=== PATIENT | female | born 1940 | race Caucasian/White ===

== ENCOUNTER 2021-07-09 20:24 | Emergency (ER) | payer MEDICARE, OTHER, MEDICAID, SELFPAY ==
[2021-07-09] VITALS (18 sets, daily range): BP systolic 151–170; BP diastolic 59–81; PULSE 64–75; RESP 15–22; TEMP 36.4; O2SAT 95–99
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
--- NOTE | 2021-07-09 20:57 | ECG_ITS ---
Measurements Intervals [place] Rate: 68 P: 56 MT: 162 QRS: -17 QRSD: 102 T: 54 QT: 421 QTc: 449 Interpretive Statements SINUS RHYTHM INFERIOR INFARCT, AGE INDETERMINATE ABNORMAL ECG Electronically Signed On 07-10-2021 8:08:36 GAMBLING SUPERVISOR by Soren Mcgee D.O.
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
[2021-07-09 21:32] LABS: Basophils Percent Auto 0.4 % (0.2-1.2); Eosinophils Percent Auto 0.1 % (0-4.4); Hematocrit 37.9 % (37.0-47.0); Hemoglobin 13.1 g/dL (12.0-15.0); Immature Granulocyte Absolute 0.02 K/mm3 (0.00-0.031); Immature Granulocyte Percent A 0.3 % (0-0.5); Immature Platelet Fraction Pct 1.3 % (0.9-11.2); Lymphocytes Absolute Auto 4.91 K/mm3 (0.9-3.2); Lymphocytes Percent Auto 72.6 % (18.3-44.2); Mean Corpuscular HGB Conc 34.6 g/dl (32-36); Mean Corpuscular Hemoglobin 31.3 pg (26-34); Mean Corpuscular Volume 90.5 fl (80-100); Mean Platelet Volume 8.6 fl (7.4-10.4); Monocytes Absolute Auto 0.5 K/mm3 (0.1-0.6); Monocytes Percent Auto 7.4 % (2.6-8.5); Neutrophils Absolute Auto 1.3 K/mm3 (1.3-6.7); Neutrophils Percent Auto 19.2 % (45.5-73.1); Platelet Count Result 154 k/mm3 (150-375); Red Blood Count 4.19 M/mm3 (4.2-5.4); White Blood Count 6.8 K/mm3 (4.5-10.0)
[2021-07-09 21:43] LABS: Alanine Aminotransferase 32 U/L (4-35); Albumin Level 4.3 g/dL (3.5-5.1); Alkaline Phosphatase 104 U/L (38-126); Anion Gap 7 mmol/L (8-16); Aspartate Amino Transferase 64 U/L (14-36); Blood Urea Nitrogen 16 mg/dL (7-17); Calcium 9.5 mg/dL (8.4-10.2); Carbon Dioxide 29 mmol/L (22-30); Chloride 101 mmol/L (98-107); Estimated CRCL calculation 42 ml/min; Estimated Glomerular Filt Rate > 60; Glucose 121 mg/dL (65-110); Potassium 4.1 mmol/L (3.4-5.0); Sodium 137 mmol/L (137-145)
[2021-07-09 23:21] LABS: Troponin I 0.026 ng/mL (0.000-0.034)
[2021-07-10] VITALS: BP 149/71; PULSE 73; RESP 18; O2SAT 97
[2021-07-10 01:14] VITALS: BP 147/68; PULSE 68; RESP 18; O2SAT 97
== END 2021-07-10 01:15 | disposition short-term general hospital (02) ==
PROVIDERS: Emergency Provider Emergency Medicine; PCP Family Medicine
DX: S22.20XA Unspecified fracture of sternum, initial encounter for closed fracture (principal); J98.59 Other diseases of mediastinum, not elsewhere classified; E03.9 Hypothyroidism, unspecified; E78.5 Hyperlipidemia, unspecified; Z87.891 Personal history of nicotine dependence; V43.62XA Car passenger injured in collision with other type car in traffic accident, initial encounter; Y92.410 Unspecified street and highway as the place of occurrence of the external cause
CPT/HCPCS: 36415; 71045; 71260; 74177; 80053; 84484; 85025; 85055; 93005; 96365; 99285; J0131; Q9967

== ENCOUNTER 2021-07-22 09:28 | Outpatient (CLI) | payer MEDICARE, MEDICAID, SELFPAY ==
--- NOTE | ~2021-07-22 | CT_ITS ---
EXAMINATION: CTA chest DATE: 07/22/2021 10:11 INDICATION: Mediastinal mass TECHNIQUE: Computed tomography (CT) of the chest was performed without and subsequently with 100 cc O mnipaque 350 intravenous contrast. Automated exposure control and iterative reconstruction technique were employed. Exam dose: 371.21 mGy-cm total exam DLP. COMPARISON: 07/09/2021 CT chest abdomen pelvis FINDINGS: Again noted is a large substernal circumscribed anterior mediastinal mass with heterogeneou s density including probable cystic and/or necrotic regions. The mass measures as much as 7 cm matthew posterior and 10 cm transverse dimension. There is enhancement of some vessels within the lesion on t he postcontrast examination. Differential diagnosis includes benign or malignant lesions of thymic, t hyroid origin or teratoma or germ cell tumors. Also included in the differential diagnosis would be l ymphoma. There is a small pericardial effusion. Heart size is normal. No hilar or other mediastinal mass lesion or lymphadenopathy or axillary adenopathy is noted. No thoracic aortic aneurysm or dissection. Bilateral apical scarring. There is discoid atelectasis or scarring in the anteromedial right upper lobe and both lower lobes. N o pulmonary consolidation or suspicious pulmonary mass lesion. The adrenal glands are unremarkable. Borderline or increased splenic size. Upper sternal body depressed fracture is again noted. IMPRESSION: Large anterior mediastinal mass; differential diagnosis given above Borderline or enlarged spleen Trace pericardial effusion Deep breast fracture of the upper body of the sternum Reviewed, dictated and finalized at Location A. Reviewed, dictated and finalized at location B. LOPMENT PROFESSIONAL IMPRESSION: Large anterior mediastinal mass; differential diagnosis given abov e Borderline or enlarged spleen Trace pericardial effusion Deep breast fracture of the upper body of the sternum
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
== END 2021-07-22 09:29 | disposition home or self-care (01) ==
PROVIDERS: PCP Family Medicine; Visit Provider Physician Assistant Medical
DX: R07.81 Pleurodynia (principal); J98.59 Other diseases of mediastinum, not elsewhere classified; I31.3 Pericardial effusion (noninflammatory); S22.22XA Fracture of body of sternum, initial encounter for closed fracture; M85.88 Other specified disorders of bone density and structure, other site
CPT/HCPCS: 71110; 71275; Q9967

== ENCOUNTER 2022-09-08 09:18 | Outpatient (CLI) | payer MEDICARE, MEDICAID, SELFPAY ==
[2022-09-08 20:20] LABS: Vitamin D 25 Hydroxy 48.6 ng/mL
[2022-09-08 20:21] LABS: Basophils Percent Auto 0.9 % (0.2-1.2); Eosinophils Percent Auto 0.3 % (0-4.4); Hematocrit 33.1 % (37.0-47.0); Hemoglobin 10.9 g/dL (12.0-15.0); Lymphocytes Absolute Auto 2.48 K/mm3 (0.9-3.2); Lymphocytes Percent Auto 74.5 % (18.3-44.2); Mean Corpuscular HGB Conc 32.9 g/dl (32-36); Mean Corpuscular Hemoglobin 29.3 pg (26-34); Mean Platelet Volume 9.3 fl (7.4-10.4); Monocytes Absolute Auto 0.5 K/mm3 (0.1-0.6); Neutrophils Absolute Auto 0.3 K/mm3 (1.3-6.7); Neutrophils Percent Auto 9.3 % (45.5-73.1); Platelet Count Result 126 k/mm3 (150-375); Red Blood Count 3.72 M/mm3 (4.2-5.4); Red Cell Distribution Width 14.6 % (11.5-14.5); White Blood Count 3.3 K/mm3 (4.5-10.0)
[2022-09-08 20:53] LABS: Alanine Aminotransferase 12 U/L (6-35); Albumin Level 3.8 g/dL (3.5-5.1); Alkaline Phosphatase 94 U/L (38-126); Anion Gap 5 mmol/L (8-16); Aspartate Amino Transferase 24 U/L (14-36); Bilirubin,Total 1.7 mg/dL (0.2-1.3); Blood Urea Nitrogen 14 mg/dL (7-17); Calcium 8.7 mg/dL (8.4-10.2); Carbon Dioxide 28 mmol/L (22-30); Chloride 102 mmol/L (98-107); Cholesterol 179 mg/dL (0-200); Estimated Glomerular Filt Rate 60; Glucose 105 mg/dL (65-110); HDL Direct 42 mg/dL; Sodium 135 mmol/L (137-145); Triglycerides 80 mg/dL (<150)
[2022-09-08 21:04] LABS: LDL Cholesterol Direct 100 mg/dL
[2022-09-08 22:01] LABS: Platelet Estimate Adequate (Adequate)
[2022-09-08 22:02] LABS: Atypical Lymphocytes Present; Schistocytes None Seen (NORMAL)
[2022-09-08 22:04] LABS: Folic Acid > 20.0 ng/mL (2.76->20)
[2022-09-08 22:13] LABS: Hemoglobin A1C 4.7 % (<5.7)
== END 2022-09-08 09:19 | disposition home or self-care (01) ==
LOC: ANHGOSHLAB 09:21
PROVIDERS: PCP Family Medicine; Visit Provider Physician Assistant
DX: R53.83 Other fatigue (principal); I10 Essential (primary) hypertension; M81.0 Age-related osteoporosis without current pathological fracture; E03.9 Hypothyroidism, unspecified; E78.2 Mixed hyperlipidemia; R73.01 Impaired fasting glucose; G62.9 Polyneuropathy, unspecified; R09.89 Other specified symptoms and signs involving the circulatory and respiratory systems
CPT/HCPCS: 36415; 80053; 80061; 82306; 82607; 82746; 83036; 84443; 85025

== ENCOUNTER 2022-09-15 09:23 | Outpatient (CLI) | payer MEDICARE, MEDICAID, SELFPAY ==
[2022-09-15 19:48] LABS: Hematocrit 34.1 % (37.0-47.0); Hemoglobin 11.4 g/dL (12.0-15.0); Immature Reticulocyte Fraction 13.3 % (3.0-15.9); Mean Corpuscular HGB Conc 33.4 g/dl (32-36); Mean Corpuscular Hemoglobin 29.8 pg (26-34); Mean Corpuscular Volume 89.3 fl (80-100); Platelet Count Result 127 k/mm3 (150-375); Red Blood Count 3.82 M/mm3 (4.2-5.4); Red Cell Distribution Width 14.6 % (11.5-14.5); Reticulocyte Hemoglobin Conten 30.9 pg (28.2-35.7); Reticulocyte Percent 2.11 % (0.7-4.3); Reticulocytes Absolute 0.08 B/L (32.2-175.7); White Blood Count 2.9 K/mm3 (4.5-10.0)
[2022-09-15 20:11] LABS: Band Neutrophils Percent 2 % (0-6); Lymphocytes Absolute Manual 2.14 K/mm3 (1.1-4.5); Monocytes Percent Manual 14 % (3-9); Neutrophils Absolute Manual 0.34 K/mm3 (1.7-7.2); Neutrophils Percent Manual 10 % (46-73); Schistocytes None Seen (NORMAL); Total Cells Counted 100
== END 2022-09-15 09:24 | disposition home or self-care (01) ==
LOC: ANHGOSHLAB 09:27
PROVIDERS: PCP Family Medicine; Visit Provider Family Medicine
DX: E03.9 Hypothyroidism, unspecified (principal); I48.20 Chronic atrial fibrillation, unspecified; R53.83 Other fatigue; D64.9 Anemia, unspecified
CPT/HCPCS: 36415; 82728; 84443; 85025; 85046

== ENCOUNTER 2022-11-08 14:37 | Outpatient (CLI) | payer MEDICARE, MEDICAID, SELFPAY ==
[2022-11-08 15:04] LABS: Basophils Percent Auto 0.3 % (0.2-1.2); Eosinophils Percent Auto 0.3 % (0-4.4); Hematocrit 34.3 % (37.0-47.0); Hemoglobin 11.5 g/dL (12.0-15.0); Lymphocytes Absolute Auto 2.03 K/mm3 (0.9-3.2); Mean Corpuscular HGB Conc 33.5 g/dl (32-36); Mean Corpuscular Volume 86.6 fl (80-100); Mean Platelet Volume 8.3 fl (7.4-10.4); Monocytes Absolute Auto 0.4 K/mm3 (0.1-0.6); Monocytes Percent Auto 11.9 % (2.6-8.5); Neutrophils Absolute Auto 0.6 K/mm3 (1.3-6.7); Neutrophils Percent Auto 20.5 % (45.5-73.1); Platelet Count Result 119 k/mm3 (150-375); Red Blood Count 3.96 M/mm3 (4.2-5.4); Red Cell Distribution Width 13.9 % (11.5-14.5)
[2022-11-08 17:11] LABS: Alanine Aminotransferase 12 U/L (6-35); Albumin Level 4.2 g/dL (3.5-5.1); Alkaline Phosphatase 98 U/L (38-126); Anion Gap 6 mmol/L (8-16); Aspartate Amino Transferase 18 U/L (14-36); Bilirubin,Total 1.3 mg/dL (0.2-1.3); Blood Urea Nitrogen 11 mg/dL (7-17); Calcium 9.1 mg/dL (8.4-10.2); Carbon Dioxide 30 mmol/L (22-30); Chloride 101 mmol/L (98-107); Estimated Glomerular Filt Rate > 60; Glucose 115 mg/dL (65-110); Lactate Dehydrogenase 158 U/L (120-246); Potassium 4.3 mmol/L (3.4-5.0); Sodium 137 mmol/L (137-145)
[2022-11-08 17:13] LABS: Iron 48 ug/dL (37-170)
[2022-11-08 17:22] LABS: Percent Iron Saturation 17 % (20-50)
[2022-11-08 18:14] LABS: Folic Acid 9.4 ng/mL (2.76->20)
== END 2022-11-08 14:38 | disposition home or self-care (01) ==
LOC: ANHLAB 14:39
PROVIDERS: PCP Family Medicine; Visit Provider Internal Medicine Hematology & Oncology
DX: D72.820 Lymphocytosis (symptomatic) (principal)
CPT/HCPCS: 36415; 80053; 82607; 82728; 82746; 83540; 83550; 83615; 85025; 88184; 88185

== ENCOUNTER 2022-11-10 15:24 | Emergency (ER) | payer MEDICARE, MEDICAID, SELFPAY ==
--- NOTE | ~2022-11-10 | XR_ITS ---
XR foot LT min 3V 11/10/2022 15:57 Indication: Pain and swelling of the left foot Procedure: 4 views left foot Comparison: No prior studies for comparison. Findings: No fracture, subluxation or dislocation. Osteopenia. No significant soft tissue abnormality . No erosive changes. Lisfranc joint intact. Impression: 1: No acute bone or joint abnormality. Reviewed, dictated and finalized at location B. Impression: 1: No acute bone or joint abnormality.
--- NOTE | 2022-11-10 15:35 | ED.LOWEXIN ---
HPI - Extremity Injury (Lower) General Chief Complaint: Extremity Injury, Lower Stated Complaint: INJURED L FOOT Time Seen by Provider: 11/10/22 15:36 Source: patient, family and RN notes reviewed History of Present Illness HPI Narrative: Patient is an 82-year-old female presents to Urgent Care with her daughter with complaints of left foot swelling and pain. Daughter states that it has been ongoing since August. States that she has been following up with an oncologist to rule out leukemia and they told her to have it evaluated by her primary care doctor. Patient has not had the issue evaluated in states the swelling has been more persistent. Patient does try to walk at least 1-2 miles per day but has not been able to do her walking due to the swelling and pain. Denies any known injury. Denies any old fractures to the foot. No other acute complaints. No acute distress noted. Patient and daughter aware of the plan of care. Some parts of this dictation were generated by voice recognition software and may contain typographical and/or grammatical inaccuracies. Related Data Home Medications Medication Instructions Recorded Confirmed lactobacillus combination no.9 4 4,000 mmu cells PO DAILY 08/20/20 11/10/22 billion cell capsule (Adult 50 Plus Probiotic) sgmowsvdecau-wxnjprbw-ksuoel tablet 1 tablet PO DAILY 08/20/20 11/10/22 levothyroxine 100 mcg tablet 100 mcg PO DAILY 08/24/22 11/10/22 amlodipine 5 mg tablet 5 mg PO DAILY 11/10/22 11/10/22 Allergies Allergy/AdvReac Type Severity Reaction Status Date / Time alendronate sodium AdvReac GI side Verified 11/10/22 15:45 [From Fosamax] effects escitalopram [From Lexapro] AdvReac felt Verified 11/10/22 15:45 crazy ibandronate sodium AdvReac Abdominal Verified 11/10/22 15:45 [From Boniva] Pain Review of Systems Review of Systems: CONSTITUTIONAL: Denies fever, chills, or sweats. EYES: Denies visual changes, redness, or discharge. ENT: Denies rhinorrhea, congestion, sore throat, or otalgia. CARDIOVASCULAR: Denies chest pain, palpitations, or edema. RESPIRATORY: Denies cough or dyspnea. GASTROINTESTINAL: Denies abdominal pain, nausea, vomiting, or diarrhea. GENITOURINARY: Denies dysuria or hematuria. SKIN: Denies rash or itching. MUSCULOSKELETAL: Reports of left foot pain and swelling NEUROLOGIC: Denies headache, numbness, or weakness. All other systems reviewed are negative, except as documented in HPI. [facility] Past Medical History Medical History Anxiety Aphthous ulcer of mouth Arthritis Carotid artery plaque Colon polyp Depression Dysphagia : Barium swallow negative Elevated LDL cholesterol level Hard of hearing History of colitis Hyperlipidemia Hypothyroidism Mediastinal mass thymoma excised Osteoporosis dexa 2019 / adverse reaction fosamax/boniva. tx refused. Ovarian cyst Postmenopausal Surgical History Surgical History H/O right knee surgery (~1951) History of colonoscopy (~04/19/15) History of neck surgery History of tubal ligation (~1976) Hx of oophorectomy Family History Family History Mother Family history of osteoporosis Depression Family history of cardiovascular disease, Onset Age: 82 Father Patient's father is , Onset Age: 78 Sibling Family history of alcoholism Family history of cardiovascular disease, Onset Age: 78 Cerebrovascular accident, Onset Age: 78 Esophageal stenosis Social History Social History Smoking status: Never smoker Second hand tobacco smoke exposure: No Alcohol intake: current Drinks per week: 14 Substance use: never Substance use type: does not use Lack of Transportation: No Lack of Food: Never True C
[2022-11-10 15:50] VITALS: BP 142/79; PULSE 74; RESP 16; TEMP 36.7; O2SAT 100
== END 2022-11-10 16:44 | disposition home or self-care (01) ==
PROVIDERS: Emergency Provider Nurse Practitioner Family; PCP Family Medicine
DX: M25.572 Pain in left ankle and joints of left foot (principal); M19.90 Unspecified osteoarthritis, unspecified site; E78.5 Hyperlipidemia, unspecified; E03.9 Hypothyroidism, unspecified; M81.0 Age-related osteoporosis without current pathological fracture
CPT/HCPCS: 73630; 99213; G0463

== ENCOUNTER 2022-11-16 09:16 | Outpatient (CLI) | payer MEDICARE, MEDICAID, SELFPAY ==
--- NOTE | ~2022-11-16 | US_ITS ---
Abdominal Sonogram: Real-time sonographic imaging of the abdomen was performed. Clinical History: Lymphocytosis Findings: The liver appears normal with no evidence of mass lesion or bile duct dilatation. Main por bee vein demonstrates normal direction of flow. The spleen is enlarged, measuring 15.5 cm in length. The gallbladder is well distended, and appears normal with no evidence of gallstone or wall thickeni ng. The common bile duct measures 4 mm. The visualized pancreas, aorta, and IVC are unremarkable. T he right kidney measures 9.6 cm in length and the left kidney measures 10.4 cm. There is no hydronep hrosis or renal calculus. Impression: Splenomegaly. Reviewed, dictated and finalized at location M. Impression: Splenomegaly.
== END 2022-11-16 09:17 | disposition home or self-care (01) ==
PROVIDERS: PCP Family Medicine; Visit Provider Internal Medicine Hematology & Oncology
DX: D72.820 Lymphocytosis (symptomatic) (principal); R16.1 Splenomegaly, not elsewhere classified
CPT/HCPCS: 76700

== ENCOUNTER 2022-12-14 00:55 | Day surgery (SDC) | payer MEDICARE, MEDICAID, SELFPAY ==
[2022-12-13 13:54] VITALS: BMI 18.0
--- NOTE | ~2022-12-14 | BM_ITS ---
EXAMINATION: CCL bone marrow asp w bx diag DATE: 12/14/2022 INDICATION: Chronic anemia. TECHNIQUE: A time-out was performed to verify the patient's name, date of , and procedure to b e performed. The procedure including the risks, benefits, and alternatives was discussed with the pat ient. Risks discussed included bleeding and infection. The patient understood the risks and agreed to proceed. The skin overlying the left ilium was prepped and draped in usual sterile fashion. Anesth etic was administered with 1% lidocaine subcutaneously. Moderate sedation was achieved with 0.5 mg Ve rsed IV and 25 mcg fentanyl IV. An 11 gauge needle was inserted into the ilium with fluoroscopic mary dance. Bone marrow was aspirated. An 8 gauge needle was then inserted into the ilium with fluoroscopi c guidance. A core bone marrow biopsy was obtained. There were no immediate complications. Fluoroscop y exposure time was 0.0 minutes. The total number of images was 1. FINDINGS: Real-time fluoroscopy demonstrates a marker overlying the left posterior superior iliac spi ne. IMPRESSION: 1. Fluoro-guided bone marrow aspiration. 2. Fluoro-guided bone marrow core biopsy. Reviewed, dictated and finalized at location A.
[2022-12-14 07:45] VITALS: BP 157/74; PULSE 66; RESP 17; TEMP 36.6; O2SAT 100; BMI 18.0
[2022-12-14 08:00] LABS: Basophils Percent Auto 0.6 % (0.2-1.2); Hematocrit 37.9 % (37.0-47.0); Hemoglobin 12.4 g/dL (12.0-15.0); Lymphocytes Absolute Auto 2.54 K/mm3 (0.9-3.2); Lymphocytes Percent Auto 72.6 % (18.3-44.2); Mean Corpuscular HGB Conc 32.7 g/dl (32-36); Mean Corpuscular Hemoglobin 28.4 pg (26-34); Mean Corpuscular Volume 86.9 fl (80-100); Mean Platelet Volume 8.9 fl (7.4-10.4); Monocytes Absolute Auto 0.5 K/mm3 (0.1-0.6); Neutrophils Absolute Auto 0.5 K/mm3 (1.3-6.7); Neutrophils Percent Auto 12.8 % (45.5-73.1); Platelet Count Result 115 k/mm3 (150-375); Red Blood Count 4.36 M/mm3 (4.2-5.4); Red Cell Distribution Width 14.7 % (11.5-14.5); White Blood Count 3.5 K/mm3 (4.5-10.0)
[2022-12-14 08:09] LABS: Prothrombin Time 13.3 Seconds (11.1-14.7)
--- NOTE | 2022-12-14 08:52 | WPDMODSED ---
Moderate Sedation Note-Pt Data Patient Data Diagnosis: Chronic anemia. Present Complaint: Chronic anemia. Procedure to be performed/Plan: Fluoro-guided bone marrow biopsy of ilium. Allergies Allergy/AdvReac Type Severity Reaction Status Date / Time alendronate sodium AdvReac GI side Verified 12/14/22 07:42 [From Fosamax] effects escitalopram [From Lexapro] AdvReac felt Verified 12/14/22 07:42 crazy ibandronate sodium AdvReac Abdominal Verified 12/14/22 07:42 [From Boniva] Pain Home Medications Medication Instructions Recorded Confirmed Type triamcinolone acetonide 0.1 % 1 applic topical BID PRN rash #454 11/12/22 12/13/22 Rx topical cream grams Magic Mouthwash (Dr. Cruz) 120 See Rx Instructions .Route 11/15/22 12/13/22 Rx mL suspension .COMPLEX #120 mL levothyroxine 100 mcg tablet 100 mcg PO DAILY #90 tabs 11/15/22 12/13/22 Rx acyclovir 800 mg tablet See Rx Instructions .Route 11/30/22 12/13/22 Rx .COMPLEX #90 tabs cyanocobalamin (vitamin B-12) 1,000 mcg PO DAILY 12/13/22 12/13/22 History 1,000 mcg tablet metoprolol succinate 25 mg 25 mg PO DAILY 12/13/22 12/13/22 History tablet,extended release 24 hr Sedation/Anesthesia: No previous sedation/anesthesia problems (including family history). [facility] Past Medical History Medical History Anxiety Aphthous ulcer of mouth Arthritis Carotid artery plaque Colon polyp Depression Dysphagia : Barium swallow negative Elevated LDL cholesterol level Hard of hearing History of colitis Hyperlipidemia Hypothyroidism Mediastinal mass thymoma excised Osteoporosis dexa 2019 / adverse reaction fosamax/boniva. tx refused. Ovarian cyst Postmenopausal Surgical History Surgical History H/O right knee surgery (~1951) History of colonoscopy (~04/19/15) History of neck surgery History of tubal ligation (~1976) Hx of oophorectomy Family History Family History Mother Family history of osteoporosis Depression Family history of cardiovascular disease, Onset Age: 82 Father Patient's father is , Onset Age: 78 Sibling Family history of alcoholism Family history of cardiovascular disease, Onset Age: 78 Cerebrovascular accident, Onset Age: 78 Esophageal stenosis Social History Social History Smoking packs per day: 1 Smoking cigarettes per day: 20.0 Years smoked: 10 Smoking pack-years: 10.00 Smoking status: Former smoker Tobacco type: cigarettes Second hand tobacco smoke exposure: No Alcohol intake: current Drinks per week: 7 Alcohol use details: a glass a day Substance use: never Substance use type: does not use Lack of Transportation: No Lack of Food: Never True Current Housing: I Have Housing Concerned About Future Housing: No Difficulty Paying Gas/Electric Bills: No Difficulty Paying for Meds: No Currently Unemployed: No Education: High School Diploma/GED Difficulty w/ Childcare or Family Care: No Living arrangements: alone Occupation/Education: retired Gender identity (if verbalized by the patient): Female Spiritual care concerns: No Agree to blood products: Yes Mod Sed Physical Exam Physical Exam Pre Procedural Exam: Normal: Appearance, Lungs, Heart Rate, Heart Rhythm and Abdomen Hours since solid foods: 12 Hours since liquid intake: 12 Mallampati Classification: class 1 Internal Medicine - PN: Obj Da Vital Signs Vital Signs: Vital Signs - 24 hr 12/14/22 07:45 Temperature 36.6 C Pulse Rate 66 Respiratory Rate 17 Blood Pressure 157/74 H Pulse Oximetry 100 Oxygen Delivery Room Air Labs 12/14/22 07:41 Labs: Laboratory Results - last 24 hr 12/14/22 07:
[2022-12-14 09:30] VITALS: BP 137/63; PULSE 62; RESP 17; O2SAT 99
[2022-12-14 09:45] VITALS: BP 149/71; PULSE 59; RESP 18; O2SAT 99
[2022-12-14 10:00] VITALS: BP 141/64; PULSE 61; RESP 18; O2SAT 97
[2022-12-14 10:15] VITALS: BP 131/64; PULSE 62; RESP 18; O2SAT 98
[2022-12-14 10:30] VITALS: BP 131/65; PULSE 61; RESP 20; O2SAT 99
== END 2022-12-14 10:37 | disposition home or self-care (01) ==
PROVIDERS: PCP Family Medicine; Referring Provider Internal Medicine Hematology & Oncology; Visit Provider Radiology Diagnostic Radiology
DX: D64.9 Anemia, unspecified (principal); E03.9 Hypothyroidism, unspecified; M81.0 Age-related osteoporosis without current pathological fracture; Z87.891 Personal history of nicotine dependence
CPT/HCPCS: 36415; 38222; 85025; 85610; 88184; 88185; 88305; 88311; 88313; 88341; 88342; J1642; J2250; J2405; J3010; J7040

== ENCOUNTER 2023-01-11 10:21 | Outpatient (NON) | payer MEDICARE, MEDICAID, SELFPAY ==
[2023-01-11 19:47] LABS: IFOB Positive Control Positive; Immunochemical Fecal Occult Bl Negative (N)
== END 2023-01-11 10:22 | disposition home or self-care (01) ==
LOC: ANHGOSHLAB 10:22
PROVIDERS: PCP Family Medicine; Visit Provider Physician Assistant
DX: D64.9 Anemia, unspecified (principal)
CPT/HCPCS: 82274

== ENCOUNTER 2023-05-18 10:28 | Outpatient (CLI) | payer MEDICARE, MEDICAID, SELFPAY ==
--- NOTE | ~2023-05-18 | XR_ITS ---
XR chest 2V DATE: 05/18/2023 10:50 INDICATION: Abnormal weight loss TECHNIQUE: PA and lateral views COMPARISON: 07/22/2021 CTA chest 07/19/2021 portable AP chest FINDINGS: Status post sternotomy. Bilateral hyperinflation, suggesting obstructive airways disease. Mild discoid atelectasis or scarrin g in the left lower lung. No pulmonary infiltrate or consolidation. Borderline heart size. Thoracic and abdominal aortic calcification. No pulmonary vascular congestion or pleural effusion or pneumothorax. There is diffuse osteopenia. There is dextroscoliosis of the thoracic spine. IMPRESSION: Status post sternotomy; resolution of anterior mediastinal widening since 07/22/2021 Bilateral hyperinflation Aortic atherosclerosis Osteopenia Reviewed, dictated and finalized at location B.
== END 2023-05-18 10:29 | disposition home or self-care (01) ==
PROVIDERS: PCP Family Medicine; Visit Provider Physician Assistant
DX: R63.4 Abnormal weight loss (principal); I70.0 Atherosclerosis of aorta; M85.88 Other specified disorders of bone density and structure, other site
CPT/HCPCS: 71046

== ENCOUNTER 2023-06-02 10:34 | Outpatient (CLI) | payer MEDICARE, MEDICAID, SELFPAY ==
[2023-06-02 10:47] LABS: Basophils Percent Auto 0.4 % (0.2-1.2); Hematocrit 34.2 % (37.0-47.0); Lymphocytes Absolute Auto 1.62 K/mm3 (0.9-3.2); Lymphocytes Percent Auto 66.4 % (18.3-44.2); Mean Corpuscular HGB Conc 32.2 g/dl (32-36); Mean Corpuscular Hemoglobin 26.5 pg (26-34); Mean Corpuscular Volume 82.4 fl (80-100); Mean Platelet Volume 8.4 fl (7.4-10.4); Monocytes Absolute Auto 0.4 K/mm3 (0.1-0.6); Monocytes Percent Auto 15.2 % (2.6-8.5); Neutrophils Absolute Auto 0.4 K/mm3 (1.3-6.7); Platelet Count Result 92 k/mm3 (150-375); Red Blood Count 4.15 M/mm3 (4.2-5.4); Red Cell Distribution Width 16.1 % (11.5-14.5); White Blood Count 2.4 K/mm3 (4.5-10.0)
[2023-06-02 10:51] LABS: Blood Urea Nitrogen 7 mg/dL (8-26); Carbon Dioxide 27 mmol/L (22-30); Chloride 102 mmol/L (98-109); Estimated Glomerular Filt Rate > 60; Glucose 111 mg/dL (70-105); Ionized Calcium (POC) 1.23 mmol/L (1.11-1.31); Potassium 4.1 mmol/L (3.5-4.9); Sodium 139 mmol/L (138-146)
[2023-06-02 16:56] LABS: Iron 34 ug/dL (37-170)
[2023-06-02 17:06] LABS: Percent Iron Saturation 13 % (20-50)
[2023-06-02 17:27] LABS: Alanine Aminotransferase 12 U/L (6-35); Albumin Level 4.1 g/dL (3.5-5.1); Alkaline Phosphatase 95 U/L (38-126); Anion Gap 7 mmol/L (8-16); Aspartate Amino Transferase 24 U/L (14-36); Bilirubin,Total 1.3 mg/dL (0.2-1.3); Blood Urea Nitrogen 9 mg/dL (7-17); Calcium 9.9 mg/dL (8.4-10.2); Carbon Dioxide 27 mmol/L (22-30); Chloride 102 mmol/L (98-107); Estimated Glomerular Filt Rate > 60; Glucose 109 mg/dL (65-110); Lactate Dehydrogenase 206 U/L (120-246); Potassium 4.2 mmol/L (3.4-5.0); Sodium 136 mmol/L (137-145)
[2023-06-02 18:38] LABS: Folic Acid > 20.0 ng/mL (2.76->20)
[2023-06-05 11:40] LABS: Methylmalonic Acid 166 nmol/L (87-318)
[2023-06-07 11:47] LABS: BCR/abl Prior Result Not Given
[2023-06-07 12:34] LABS: BCR/abl P190 Not Detected; BCR/abl P210 Not Detected
[2023-06-07 12:35] LABS: BCR/abl P190 Chg YES; BCR/abl P210 Chg YES
== END 2023-06-02 10:35 | disposition home or self-care (01) ==
PROVIDERS: PCP Family Medicine; Visit Provider Internal Medicine Hematology & Oncology
DX: D61.818 Other pancytopenia (principal); D72.820 Lymphocytosis (symptomatic); D50.9 Iron deficiency anemia, unspecified
CPT/HCPCS: 36415; 80047; 80053; 81206; 81207; 82607; 82728; 82746; 83540; 83550; 83615; 83921; 85025; 88184; 88185

== ENCOUNTER 2023-09-20 13:12 | Outpatient (CLI) | payer MEDICARE, MEDICAID, SELFPAY ==
[2023-09-20 13:28] LABS: Basophils Percent Auto 0.5 % (0.2-1.2); Hematocrit 34.4 % (37.0-47.0); Lymphocytes Absolute Auto 1.18 K/mm3 (0.9-3.2); Lymphocytes Percent Auto 62.8 % (18.3-44.2); Mean Corpuscular Hemoglobin 24.6 pg (26-34); Mean Platelet Volume 8.5 fl (7.4-10.4); Monocytes Absolute Auto 0.3 K/mm3 (0.1-0.6); Monocytes Percent Auto 15.4 % (2.6-8.5); Neutrophils Absolute Auto 0.4 K/mm3 (1.3-6.7); Neutrophils Percent Auto 21.3 % (45.5-73.1); Platelet Count Result 90 k/mm3 (150-375); Red Blood Count 4.47 M/mm3 (4.2-5.4); Red Cell Distribution Width 16.7 % (11.5-14.5)
[2023-09-20 13:30] LABS: White Blood Count 1.9 K/mm3 (4.5-10.0)
[2023-09-20 16:27] LABS: Iron 33 ug/dL (37-170)
[2023-09-20 16:41] LABS: Percent Iron Saturation 13 % (20-50)
== END 2023-09-20 13:13 | disposition home or self-care (01) ==
LOC: ANHLAB 13:16
PROVIDERS: PCP Family Medicine; Visit Provider Internal Medicine Hematology & Oncology
DX: D61.818 Other pancytopenia (principal); D64.9 Anemia, unspecified
CPT/HCPCS: 36415; 82728; 83540; 83550; 85025

== ENCOUNTER 2023-12-10 09:36 | Outpatient (CLI) | payer MEDICARE, MEDICAID, SELFPAY ==
--- NOTE | ~2023-12-10 | US_ITS ---
EXAMINATION: US abdomen complete DATE: 12/10/2023 10:56 INDICATION: Splenomegaly, not elsewhere classified. Pancytopenia. TECHNIQUE: Multiple grayscale and Doppler ultrasound images of the abdomen were obtained. COMPARISON: Abdomen ultrasound 11/16/2022 FINDINGS: The visualized portions of the head and body of the pancreas are normal. Abdominal aorta is normal in caliber. The inferior vena cava is normal. The liver is normal without focal lesion. The g allbladder is decompressed. No gallstones or gallbladder wall thickening. There is no sonographic Mur phy's sign. The common duct is normal and measures 4 mm. The spleen measures 20.0 cm. The kidneys are normal in size. IMPRESSION: 1. Severe splenomegaly, worsened from 11/13/2022. Reviewed, dictated and finalized at location E.
== END 2023-12-10 09:37 | disposition home or self-care (01) ==
PROVIDERS: PCP Family Medicine; Visit Provider Family Medicine
DX: R16.1 Splenomegaly, not elsewhere classified (principal); D61.818 Other pancytopenia
CPT/HCPCS: 76700

== ENCOUNTER 2023-12-26 10:02 | Emergency (ER) | payer MEDICARE, MEDICAID, SELFPAY ==
[2023-12-26] VITALS (19 sets, daily range): BP systolic 127–167; BP diastolic 58–75; PULSE 69–86; RESP 11–20; TEMP 36.6–36.7; O2SAT 98–100
--- NOTE | ~2023-12-26 | XR_ITS ---
EXAMINATION: XR chest 2V DATE: 12/26/2023 13:34 INDICATION: Cough. Weakness. TECHNIQUE: Frontal and lateral views of the chest were obtained. COMPARISON: Chest 2 views 05/18/2023, chest CT 07/22/2021 FINDINGS: There is mild scarring at the lung apices. There is mild atelectasis in lingula. No pleural effusion or pneumothorax. The heart size is normal. Median sternotomy wires are noted. IMPRESSION: 1. Stable mild scarring at the lung apices. 2. Mild atelectasis in lingula. Reviewed, dictated and finalized at location E.
--- NOTE | 2023-12-26 11:19 | PC.NURSE ---
patient and family bedside state main complaint is having poor appetite from extra mucus the past 3 weeks. patient has not been staying well hydrated to thin the mucus because they have intermittent nausea
--- NOTE | 2023-12-26 12:17 | ED.GENADULT ---
HPI - General Adult General Chief complaint: Unspecified Stated complaint: weak, loss appetite Time Seen by Provider: 12/26/23 11:59 History of Present Illness HPI narrative: Patient is an 83 year old female with history of anxiety, arthritis, dysphagia, prior excised thymoma here with cough, increased sputum in her throat, a subjective fever and worsened weakness for the last few days. patient notes that she feels a ball of phlegm in her throat and she tries to cough it up and occasionally is able to cough up a large amount of a sputum ball. She is here requesting that I remove all of the sputum from her throat and chest so that she no longer has to cough it up. She does note she has had some increased coughing. She has had a subjective fever over the last few days. She notes she has been more weak than usual over the last 3 days as well. On further discussion she has had a long-standing decline over the last couple of years and is getting an extensive outpatient workup regarding this. She has chronic abdominal pains for several hours a day over her spleen area and this is unchanged today. 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 Related Data Home Medications Medication Instructions Recorded Confirmed cyanocobalamin (vitamin B-12) 1,000 mcg PO DAILY 12/13/22 11/23/23 1,000 mcg tablet aspirin 81 mg tablet,delayed 81 mg PO DAILY 05/26/23 11/23/23 release (Adult Low Dose Aspirin) multivitamin 1 tablet PO DAILY 05/26/23 11/23/23 ferrous sulfate 325 mg (65 mg 325 mg PO BID 09/29/23 11/23/23 iron) tablet Allergies Allergy/AdvReac Type Severity Reaction Status Date / Time acyclovir AdvReac Severe Diarrhea Verified 11/23/23 11:35 alendronate sodium AdvReac GI side Verified 11/23/23 11:35 [From Fosamax] effects escitalopram [From Lexapro] AdvReac felt Verified 11/23/23 11:35 crazy ibandronate sodium AdvReac Abdominal Verified 11/23/23 11:35 [From Boniva] Pain Review of Systems Review of Systems: All systems reviewed & are unremarkable except as noted in HPI and below PMFSH Past Medical History Medical History Anxiety Aphthous ulcer of mouth Arthritis Carotid artery plaque Colon polyp Depression Dysphagia : Barium swallow negative Elevated LDL cholesterol level Hard of hearing History of colitis Hyperlipidemia Hypothyroidism Mediastinal mass thymoma excised Osteoporosis dexa 2019 / adverse reaction fosamax/boniva. tx refused. Ovarian cyst Postmenopausal Surgical History Surgical History H/O right knee surgery (~1951) History of colonoscopy (~04/19/15) History of neck surgery History of tubal ligation (~1976) Hx of oophorectomy Family History Family History Mother Family history of osteoporosis Depression Family history of cardiovascular disease, Onset Age: 82 Father Patient's father is , Onset Age: 78 Sibling Family history of alcoholism Family history of cardiovascular disease, Onset Age: 78 Cerebrovascular accident, Onset Age: 78 Esophageal stenosis Social History Social History Smoking packs per day: 1 Smoking cigarettes per day: 20.0 Years smoked: 10 Smoking pack-years: 10.00 Smoking status: Former smoker Tobacco type: cigarettes Second hand tobacco smoke exposure: No Alcohol intake: current Drinks per week: 7 Alcohol use details: a glass a day Substance use: never Substance use type: does not use Lack of Transportation: No Lack of Food: Never True Current Housing: I Have Housing Concerned About F
--- NOTE | 2023-12-26 12:22 | ECG_ITS ---
SEE SCANNED COPY FOR CONFIRMED REPORT MTDD
[2023-12-26 12:43] LABS: Hematocrit 28.7 % (37.0-47.0); Hemoglobin 9.2 g/dL (12.0-15.0); Immature Granulocyte Absolute 0.01 K/mm3 (0.00-0.031); Immature Granulocyte Percent A 0.9 % (0-0.5); Immature Platelet Fraction Pct 1.1 % (0.9-11.2); Lymphocytes Absolute Auto 0.81 K/mm3 (0.9-3.2); Lymphocytes Percent Auto 72.3 % (18.3-44.2); Mean Corpuscular HGB Conc 32.1 g/dl (32-36); Mean Corpuscular Hemoglobin 23.7 pg (26-34); Mean Platelet Volume 8.9 fl (7.4-10.4); Monocytes Absolute Auto 0.1 K/mm3 (0.1-0.6); Monocytes Percent Auto 12.5 % (2.6-8.5); Neutrophils Absolute Auto 0.2 K/mm3 (1.3-6.7); Neutrophils Percent Auto 14.3 % (45.5-73.1); Platelet Count Result 76 k/mm3 (150-375); Red Blood Count 3.88 M/mm3 (4.2-5.4); Red Cell Distribution Width 17.1 % (11.5-14.5)
[2023-12-26 12:53] LABS: INR 1.1; Prothrombin Time 14.9 Seconds (11.1-14.7)
[2023-12-26 12:54] LABS: Partial Thromboplastin Time 46.3 Seconds (22.3-36.8)
[2023-12-26 12:58] LABS: Alanine Aminotransferase 11 U/L (6-35); Albumin Level 3.5 g/dL (3.5-5.1); Alkaline Phosphatase 80 U/L (38-126); Anion Gap 9 mmol/L (4-12); Aspartate Amino Transferase 19 U/L (14-36); Bilirubin,Total 1.9 mg/dL (0.2-1.3); Blood Urea Nitrogen 18 mg/dL (7-17); Calcium 8.8 mg/dL (8.4-10.2); Carbon Dioxide 25 mmol/L (22-30); Chloride 102 mmol/L (98-107); Creatine Kinase < 20 U/L (30-135); Estimated CRCL calculation 37 ml/min; Estimated Glomerular Filt Rate > 60; Glucose 108 mg/dL (65-110); Lipase 74 U/L (23-300); Magnesium 1.9 mg/dL (1.6-2.3); Potassium 3.6 mmol/L (3.4-5.0); Sodium 136 mmol/L (137-145)
[2023-12-26 13:08] LABS: Troponin I < 0.012 ng/mL (0.000-0.034)
[2023-12-26] MEDS: LACTATED RINGERS 1,000 ML 999 ML IV CONT (13:13)
[2023-12-26 13:14] LABS: White Blood Count 1.1 K/mm3 (4.5-10.0)
[2023-12-26 13:17] LABS: Platelet Estimate Decreased (Adequate)
[2023-12-26 13:18] LABS: Anisocytosis 1+; Ovalocytes 1+; Schistocytes None Seen
[2023-12-26 13:32] LABS: Influenza A QL RT-PCR Negative (Negative); Influenza B QL RT-PCR Negative (Negative); RSV RNA, RT-PCR Negative (Negative); SARS-CoV-2 RNA PCR Negative (Negative)
[2023-12-26 13:43] LABS: Appearance Urine Cloudy (Clear); Bacteria Urine None Seen /hpf; Bilirubin Urine 2+ (Negative); Blood Urine Negative (Negative); Color Urine Dark Yellow (Yellow); Glucose Urine UA Negative (Negative); Ketones Urine 3+ mg/dL (Negative); Leukocyte Esterase Ur Negative LEU/UL (Negative); Mucus Urine Present /lpf; Nitrate Urine Negative (Negative); Protein Urine 2+ mg/dL (Negative); RBC Urine 0-2 /hpf (0-2); Specific Grav Ur 1.024 (1.001-1.035); Squamous Epithelial Cell Urine Moderate /hpf (Few); WBC Urine 0-5 /hpf (0-3); pH Urine 5.5 (5.0-9.0)
[2023-12-26 13:44] LABS: Add Urine Microscopic? YES
== END 2023-12-26 16:47 | disposition home or self-care (01) ==
PROVIDERS: Emergency Provider Student in an Organized Health Care Education/Training Program; PCP Family Medicine
DX: R05.9 Cough, unspecified (principal); D61.818 Other pancytopenia; R16.1 Splenomegaly, not elsewhere classified; Z20.822 Contact with and (suspected) exposure to COVID-19; I65.29 Occlusion and stenosis of unspecified carotid artery; E78.00 Pure hypercholesterolemia, unspecified; E03.9 Hypothyroidism, unspecified; M81.0 Age-related osteoporosis without current pathological fracture; M19.90 Unspecified osteoarthritis, unspecified site; Z86.010 Personal history of colon polyps; Z87.891 Personal history of nicotine dependence; Z79.82 Long term (current) use of aspirin; Z79.899 Other long term (current) drug therapy; R94.31 Abnormal electrocardiogram [ECG] [EKG]
CPT/HCPCS: 36415; 71046; 80053; 81001; 82550; 83690; 83735; 84484; 85025; 85055; 85610; 85730; 87637; 93005; 96360; 99284; J7120

== ENCOUNTER 2024-01-23 00:37 | Day surgery (SDC) | payer MEDICARE, MEDICAID, SELFPAY ==
[2024-01-13 14:20] VITALS: BMI 16.5
--- NOTE | 2024-01-19 12:44 | SUR.PREOP ---
Spoke with Dr. Mckenzie regarding patient's low WBC count. Doctor reviewed patient's chart and no ordered received.
--- NOTE | 2024-01-19 12:45 | SUR.PREOP ---
Doctor Mckenzie called back and antibiotic orders received.
[2024-01-23 11:10] VITALS: BP 138/82; PULSE 93; RESP 16; TEMP 36.4; O2SAT 100
[2024-01-23] MEDS: LACTATED RINGERS 1,000 ML 150 ML IV CONT (11:12)
[2024-01-23] MEDS: GENTAMICIN 80MG/SOD CHL 50 ML 80 MG/50 ML BAG 100 MG IVPB (11:20)
--- NOTE | 2024-01-23 12:05 | WPDANESEPPF ---
Anes - Initial Pre Proc Eval Procedure: Operation Date: 01/23/24 12:30 Proposed Procedures p Esophagogastroduodenoscopy - Raleigh Elizabeth MD Date/Time: 01/23/24 12:05 Surgeon: Raleigh Elizabeth MD Pre Op Diagnosis: Dysphagia unspecified Patient Data Age: 83 Gender: F Height: 1.7 m Weight: 40.9 kg Last Vital Signs Temp 97.6 F 01/23/24 11:10 Pulse 93 01/23/24 11:10 Resp 16 01/23/24 11:10 BP 138/82 01/23/24 11:10 Pulse Ox 100 01/23/24 11:10 O2 Del Method Room Air 01/23/24 11:10 Allergies Allergy/AdvReac Type Severity Reaction Status Date / Time acyclovir AdvReac Severe Diarrhea Verified 01/23/24 11:09 alendronate sodium AdvReac GI side Verified 01/23/24 11:09 [From Fosamax] effects escitalopram [From Lexapro] AdvReac felt Verified 01/23/24 11:09 crazy ibandronate sodium AdvReac Abdominal Verified 01/23/24 11:09 [From Boniva] Pain Home Medications Medication Instructions Recorded Confirmed Type cyanocobalamin (vitamin B-12) 1,000 mcg PO DAILY 12/13/22 01/13/24 History 1,000 mcg tablet aspirin 81 mg tablet,delayed 81 mg PO DAILY 05/26/23 01/13/24 History release (Adult Low Dose Aspirin) multivitamin 1 tablet PO DAILY 05/26/23 01/13/24 History ferrous sulfate 325 mg (65 mg 325 mg PO BID 09/29/23 01/13/24 History iron) tablet levothyroxine 100 mcg tablet 100 mcg PO DAILY #90 tabs 11/11/23 01/13/24 Rx ondansetron 4 mg disintegrating 4 mg PO Q6H PRN nausea and 12/26/23 01/13/24 Rx tablet vomiting #20 tabs cetirizine 10 mg capsule (Zyrtec) 10 mg PO DAILY 01/13/24 01/13/24 History Patient hx anesthesia problems: none Family hx anesthesia problems: none Results Review: All pre-operative results and documents have been reviewed as part of the pre-operative evaluation. [facility] Past Medical History Medical History Anxiety Aphthous ulcer of mouth Arthritis Carotid artery plaque Cellulitis of right leg without foot Colon polyp Depression Dysphagia : Barium swallow negative Elevated LDL cholesterol level Hard of hearing History of colitis Hyperlipidemia Hypothyroidism Mediastinal mass thymoma excised Osteoporosis dexa 2019 / adverse reaction fosamax/boniva. tx refused. Ovarian cyst Postmenopausal Surgical History Surgical History H/O right knee surgery (~1951) History of colonoscopy (~04/19/15) History of neck surgery History of tubal ligation (~1976) Hx of oophorectomy Family History Family History Mother Family history of osteoporosis Depression Family history of cardiovascular disease, Onset Age: 82 Father Patient's father is , Onset Age: 78 Sibling Family history of alcoholism Family history of cardiovascular disease, Onset Age: 78 Cerebrovascular accident, Onset Age: 78 Esophageal stenosis Social History Social History Smoking packs per day: 1 Smoking cigarettes per day: 20.0 Years smoked: 10 Smoking pack-years: 10.00 Smoking status: Never smoker Tobacco type: cigarettes Second hand tobacco smoke exposure: No Alcohol intake: current Drinks per week: 2 Alcohol use details: WINE Substance use: never Substance use type: does not use Lack of Transportation: No Lack of Food: Never True Current Housing: I Have Housing Concerned About Future Housing: No Difficulty Paying Gas/Electric Bills: No Difficulty Paying for Meds: No Currently Unemployed: No Education: High School Diploma/GED Difficulty w/ Childcare or Family Care: No Living arrangements: alone Occupation/Education: retired Gender identity (if verbalized by the patient): Female Spiritual care concerns: No
--- NOTE | 2024-01-23 12:24 | PM.HPGS ---
History of Present Illness History of Present Illness Consent: Risks, benefits, and alternatives have been discussed and questions answered. Patient agrees to proceed with procedure. Chief complaint: Dysphagia unspecified Narrative: Aileen Larson is a 83 year old female with some dysphagia, she also has pancytopenia for which is seeing financial planning assistant Review of Systems Review of Systems: All systems reviewed & are unremarkable except as noted in HPI and below PMFSH Past Medical History Medical History (Updated 01/23/24 @ 12:25 by Raleigh Elizabeth MD) Anxiety Aphthous ulcer of mouth Arthritis Carotid artery plaque Cellulitis of right leg without foot Colon polyp Depression Dysphagia : Barium swallow negative Dysphagia Elevated LDL cholesterol level Hard of hearing History of colitis Hyperlipidemia Hypothyroidism Mediastinal mass thymoma excised Osteoporosis dexa 2019 / adverse reaction fosamax/boniva. tx refused. Ovarian cyst Postmenopausal Surgical History Surgical History H/O right knee surgery (~1951) History of colonoscopy (~04/19/15) History of neck surgery History of tubal ligation (~1976) Hx of oophorectomy Family History Family History Mother Family history of osteoporosis Depression Family history of cardiovascular disease, Onset Age: 82 Father Patient's father is , Onset Age: 78 Sibling Family history of alcoholism Family history of cardiovascular disease, Onset Age: 78 Cerebrovascular accident, Onset Age: 78 Esophageal stenosis Social History Social History Smoking packs per day: 1 Smoking cigarettes per day: 20.0 Years smoked: 10 Smoking pack-years: 10.00 Smoking status: Never smoker Tobacco type: cigarettes Second hand tobacco smoke exposure: No Alcohol intake: current Drinks per week: 2 Alcohol use details: WINE Substance use: never Substance use type: does not use Lack of Transportation: No Lack of Food: Never True Current Housing: I Have Housing Concerned About Future Housing: No Difficulty Paying Gas/Electric Bills: No Difficulty Paying for Meds: No Currently Unemployed: No Education: High School Diploma/GED Difficulty w/ Childcare or Family Care: No Living arrangements: alone Occupation/Education: retired Gender identity (if verbalized by the patient): Female Spiritual care concerns: No Agree to blood products: Yes Meds Home Medications and Allergies Home Medications Medication Instructions Recorded Confirmed Type cyanocobalamin (vitamin B-12) 1,000 mcg PO DAILY 12/13/22 01/13/24 History 1,000 mcg tablet aspirin 81 mg tablet,delayed 81 mg PO DAILY 05/26/23 01/13/24 History release (Adult Low Dose Aspirin) multivitamin 1 tablet PO DAILY 05/26/23 01/13/24 History ferrous sulfate 325 mg (65 mg 325 mg PO BID 09/29/23 01/13/24 History iron) tablet levothyroxine 100 mcg tablet 100 mcg PO DAILY #90 tabs 11/11/23 01/13/24 Rx ondansetron 4 mg disintegrating 4 mg PO Q6H PRN nausea and 12/26/23 01/13/24 Rx tablet vomiting #20 tabs cetirizine 10 mg capsule (Zyrtec) 10 mg PO DAILY 01/13/24 01/13/24 History Allergies Allergy/AdvReac Type Severity Reaction Status Date / Time acyclovir AdvReac Severe Diarrhea Verified 01/23/24 11:09 alendronate sodium AdvReac GI side Verified 01/23/24 11:09 [From Fosamax] effects escitalopram [From Lexapro] AdvReac felt Verified 01/23/24 11:09 crazy ibandronate sodium AdvReac Abdominal Verified 01/23/24 11:09 [From Boniva] Pain Vital Signs Vital Signs - 24 hr 01/23/24 11:10 Temperature 97.6 F Pulse Rate 93 Respiratory Rate 16 Blood Pressure 138/82 Pulse Oximetry 100 Oxygen Delivery Room Air Majora
[2024-01-23 12:33] VITALS: BP 126/64; PULSE 63; RESP 18; O2SAT 99
[2024-01-23 12:43] VITALS: BP 122/66; PULSE 66; RESP 16; O2SAT 98
[2024-01-23 12:53] VITALS: BP 113/65; PULSE 65; RESP 14; O2SAT 98
== END 2024-01-23 13:03 | disposition home or self-care (01) ==
PROVIDERS: PCP Family Medicine; Visit Provider Internal Medicine Gastroenterology
PROC: 0DJ08ZZ Inspection of Upper Intestinal Tract, Via Natural or Artificial Opening Endoscopic (ICD-10-PCS; CPT 43235; principal; 2024-01-23 12:30)
DX: K29.70 Gastritis, unspecified, without bleeding (principal); D61.818 Other pancytopenia; E03.9 Hypothyroidism, unspecified; M81.0 Age-related osteoporosis without current pathological fracture; Z79.82 Long term (current) use of aspirin; R64 Cachexia; Z68.1 Body mass index [BMI] 19.9 or less, adult
CPT/HCPCS: 43235; J1580; J2704; J7120

== ENCOUNTER 2024-02-09 14:01 | Outpatient (CLI) | payer MEDICARE, MEDICAID, SELFPAY ==
[2024-02-09 14:43] LABS: Hematocrit 30.8 % (37.0-47.0); Hemoglobin 9.7 g/dL (12.0-15.0); Lymphocytes Absolute Auto 0.94 K/mm3 (0.9-3.2); Lymphocytes Percent Auto 85.5 % (18.3-44.2); Mean Corpuscular HGB Conc 31.5 g/dl (32-36); Mean Corpuscular Hemoglobin 23.7 pg (26-34); Mean Corpuscular Volume 75.1 fl (80-100); Mean Platelet Volume 8.8 fl (7.4-10.4); Monocytes Absolute Auto 0.1 K/mm3 (0.1-0.6); Monocytes Percent Auto 4.5 % (2.6-8.5); Neutrophils Absolute Auto 0.1 K/mm3 (1.3-6.7); Platelet Count Result 57 k/mm3 (150-375); White Blood Count 1.1 K/mm3 (4.5-10.0)
[2024-02-09 14:47] LABS: Ovalocytes 1+; Platelet Estimate Decreased (Adequate); Schistocytes None Seen
[2024-02-09 14:48] LABS: Anisocytosis 1+; Microcytosis 1+ (NORMAL); Poikilocytosis 1+
[2024-02-09 16:35] LABS: Iron 23 ug/dL (37-170)
[2024-02-09 16:40] LABS: Anion Gap 9 mmol/L (4-12); Blood Urea Nitrogen 16 mg/dL (7-17); Calcium 8.8 mg/dL (8.4-10.2); Carbon Dioxide 29 mmol/L (22-30); Chloride 91 mmol/L (98-107); Estimated Glomerular Filt Rate > 60; Glucose 137 mg/dL (65-110); Potassium 4.3 mmol/L (3.4-5.0); Sodium 129 mmol/L (137-145)
[2024-02-09 16:48] LABS: Percent Iron Saturation 13 % (20-50)
[2024-02-09 17:49] LABS: Folic Acid 17.6 ng/mL (2.76->20); Vitamin B12 > 1000.0 pg/mL (239-931)
== END 2024-02-09 14:02 | disposition home or self-care (01) ==
LOC: ANHLAB 14:04
PROVIDERS: PCP Family Medicine; Visit Provider Internal Medicine Hematology & Oncology
DX: D61.818 Other pancytopenia (principal); D64.9 Anemia, unspecified
CPT/HCPCS: 36415; 80048; 82607; 82728; 82746; 83540; 83550; 85025; 85055

== ENCOUNTER 2024-02-29 09:15 | Emergency (ER) | payer MEDICARE, MEDICAID, SELFPAY ==
--- NOTE | ~2024-02-29 | XR_ITS ---
XR hip BI 2V w AP pelvis Ordering provider: Marion Vazquez PA-C History: . glf, pain to tailbone . Comparison: None. FINDINGS: BONES: No acute fracture or dislocation. HIP JOINT SPACES: Mild osteoarthritic changes. SACROILIAC JOINT SPACES/LUMBAR SPINE: The sacroiliac joint spaces are normal. Mild degenerative new es of the visualized lower lumbar spine. PUBIC SYMPHYSIS: Normal. SOFT TISSUES: Normal. Fecal material is loaded in the constipation IMPRESSION: No acute osseous abnormality of the bilateral hips and pelvis. Reviewed, dictated and finalized at location A.
[2024-02-29 09:27] VITALS: BP 124/70; PULSE 103; RESP 17; TEMP 36.4; O2SAT 100
[2024-02-29 11:27] VITALS: BP 157/93; PULSE 87; RESP 20; O2SAT 98
[2024-02-29] MEDS: TETANUS,DIPHTHERIA,AC PERTUSSIS ADULT (0.5 ML) BOOSTRIX IM (11:50)
[2024-02-29] MEDS: FILGRASTIM-SNDZ 480 MCG/0.8 ML SYRINGE SUB-Q (12:13)
[2024-02-29] MEDS: CEPHALEXIN 500 MG CAPSULE PO (12:16)
--- NOTE | 2024-02-29 12:20 | ED.FALL ---
HPI - Fall General Chief Complaint: Fall Stated Complaint: fall Time Seen by Provider: 02/29/24 10:50 Source: patient Mode of arrival: ambulatory Limitations: no limitations History of Present Illness HPI Narrative: Patient is an 84-year-old female who presents the ED with report of a fall. Patient reports she lost her balance and tripped, falling onto her bottom. She did not hit her head or lose consciousness. She sustained a skin tear to her left forearm. Denies pain to left arm. Tetanus unknown. She is not on any anticoagulation. Patient does complain of mild pain to her buttocks. Denies dizziness, lightheadedness, vision changes, focal weakness or numbness. Daughter at bedside reports patient is currently seeing Dr. Felder for pancytopenia. Is supposed to receive neupogen infusion today. Related Data Home Medications Medication Instructions Recorded Confirmed cyanocobalamin (vitamin B-12) 1,000 mcg PO DAILY 12/13/22 01/13/24 1,000 mcg tablet aspirin 81 mg tablet,delayed 81 mg PO DAILY 05/26/23 02/27/24 release (Adult Low Dose Aspirin) multivitamin 1 tablet PO DAILY 05/26/23 01/13/24 ferrous sulfate 325 mg (65 mg 325 mg PO BID 09/29/23 01/13/24 iron) tablet cetirizine 10 mg capsule (Zyrtec) 10 mg PO DAILY 01/13/24 01/13/24 Allergies Allergy/AdvReac Type Severity Reaction Status Date / Time acyclovir AdvReac Severe Diarrhea Verified 02/29/24 11:52 alendronate sodium AdvReac GI side Verified 02/29/24 11:52 [From Fosamax] effects escitalopram [From Lexapro] AdvReac felt Verified 02/29/24 11:52 crazy ibandronate sodium AdvReac Abdominal Verified 02/29/24 11:52 [From Boniva] Pain Review of Systems Review of Systems: CONSTITUTIONAL: Denies fever, chills, or sweats. MUSCULOSKELETAL: See HPI. NEUROLOGIC: Denies HI, LOC, headache, dizziness, numbness, or weakness. All systems reviewed & are unremarkable except as noted in HPI and below PMFSH Past Medical History Medical History Anxiety Aphthous ulcer of mouth Arthritis Carotid artery plaque Cellulitis of right leg without foot Colon polyp Depression Dysphagia : Barium swallow negative Dysphagia Elevated LDL cholesterol level Hard of hearing History of colitis Hyperlipidemia Hypothyroidism Mediastinal mass thymoma excised Osteoporosis dexa 2019 / adverse reaction fosamax/boniva. tx refused. Ovarian cyst Postmenopausal Surgical History Surgical History H/O right knee surgery (~1951) History of colonoscopy (~04/19/15) History of neck surgery History of tubal ligation (~1976) Hx of oophorectomy Family History Family History Mother Family history of osteoporosis Depression Family history of cardiovascular disease, Onset Age: 82 Father Patient's father is , Onset Age: 78 Sibling Family history of alcoholism Family history of cardiovascular disease, Onset Age: 78 Cerebrovascular accident, Onset Age: 78 Esophageal stenosis Social History Social History Smoking packs per day: 1 Smoking cigarettes per day: 20.0 Years smoked: 10 Smoking pack-years: 10.00 Smoking status: Never smoker Tobacco type: cigarettes Second hand tobacco smoke exposure: No Alcohol intake: current Drinks per week: 2 Alcohol use details: WINE Substance use: never Substance use type: does not use Lack of Transportation: No Lack of Food: Never True Current Housing: I Have Housing Concerned About Future Housing: No Difficulty Paying Gas/Electric Bills: No Difficulty Paying for Meds: No Currently Unemployed: No Education: High School Diploma/GED Difficulty w/ Childcare or Family Care: No Living arrangements: al
== END 2024-02-29 12:51 | disposition home or self-care (01) ==
PROVIDERS: Emergency Provider Physician Assistant; PCP Family Medicine
DX: S51.812A Laceration without foreign body of left forearm, initial encounter (principal); S30.0XXA Contusion of lower back and pelvis, initial encounter; D61.818 Other pancytopenia; Z23 Encounter for immunization; E78.5 Hyperlipidemia, unspecified; E03.9 Hypothyroidism, unspecified; M19.90 Unspecified osteoarthritis, unspecified site; M81.0 Age-related osteoporosis without current pathological fracture; F32.A Depression, unspecified; F41.9 Anxiety disorder, unspecified; F17.210 Nicotine dependence, cigarettes, uncomplicated; Z86.010 Personal history of colon polyps; Z79.82 Long term (current) use of aspirin; Z79.899 Other long term (current) drug therapy; W01.0XXA Fall on same level from slipping, tripping and stumbling without subsequent striking against object, initial encounter
CPT/HCPCS: 73521; 90471; 90715; 96372; 99283; A9270; Q5101

== ENCOUNTER 2024-03-19 22:45 | Emergency (ER) | payer MEDICARE, MEDICAID, SELFPAY ==
[2024-03-19 22:50] VITALS: BP 102/78; PULSE 108; RESP 38; TEMP 36.5; O2SAT 94
--- NOTE | 2024-03-19 22:54 | ED.SOB ---
HPI - SOB/Dyspnea General Chief Complaint: Shortness of Breath/Dyspnea Stated Complaint: FALLS, SOB, BRADYCARDIC Time Seen by Provider: 03/19/24 22:54 Source: family and EMS Mode of arrival: EMS Limitations: no limitations History of Present Illness HPI Narrative: This is a 84-year-old female who presents to the ED via EMS for chief complaint of dyspnea and a fall today. Per EMS patient was hypoxic so was started on 4L. She does not normally wear oxygen. patient's family is here and states that they were on their way to the bathroom when she took a fall. she fell onto her right side. Patient states that she has been short of breath for the past 4 hours or so. Family states the patient has history of bone marrow disorder but has not had any official cancer diagnosis. She just got released from rehab hospital today. She has history of some myelo dysplastic disorder but no official diagnosis. she was in rehab for frequent falls. When discussing the course of the hospital visit today, patient and family are stating that they do not want any invasive measures. Patient would like to be made comfort measures only and she/family would like to consult with hospice. she does not want to have any blood drawn. Just wants to be made comfortable. Declining opioids as they make her violently ill. Related Data Home Medications Medication Instructions Recorded Confirmed cyanocobalamin (vitamin B-12) 1,000 mcg PO DAILY 12/13/22 03/07/24 1,000 mcg tablet aspirin 81 mg tablet,delayed 81 mg PO DAILY 05/26/23 03/07/24 release (Adult Low Dose Aspirin) multivitamin 1 tablet PO DAILY 05/26/23 03/07/24 ferrous sulfate 325 mg (65 mg 325 mg PO BID 09/29/23 03/07/24 iron) tablet cetirizine 10 mg capsule (Zyrtec) 10 mg PO DAILY 01/13/24 03/07/24 amitriptyline 25 mg tablet 25 mg PO QHS abd cramping, loss of 03/07/24 03/07/24 appetite filgrastim-ayow 300 mcg/0.5 mL 300 mcg subcut DIRECTED 03/07/24 03/07/24 subcutaneous syringe lactase 3,000 unit tablet (Dairy 9,000 unit PO ONCE PRN Lactose 03/07/24 03/07/24 Relief) Intolerance levothyroxine 100 mcg tablet 100 mcg PO DAILY 03/07/24 03/07/24 omeprazole 20 mg capsule,delayed 20 mg PO HS 03/07/24 03/07/24 release prednisone 10 mg tablet See Taper PO DIRECTED 03/07/24 03/07/24 Allergies Allergy/AdvReac Type Severity Reaction Status Date / Time acyclovir AdvReac Severe Diarrhea Verified 03/07/24 15:23 alendronate sodium AdvReac GI side Verified 03/07/24 15:23 [From Fosamax] effects escitalopram [From Lexapro] AdvReac felt Verified 03/07/24 15:23 crazy ibandronate sodium AdvReac Abdominal Verified 03/07/24 15:23 [From Boniva] Pain Review of Systems Review of Systems: All systems as dictated in [facility] Past Medical History Medical History (Updated 03/20/24 @ 01:17 by Nicho Johnson PA-C) Anxiety Aphthous ulcer of mouth Arthritis Cachexia Carotid artery plaque Cellulitis of right leg without foot Colon polyp Depression Dysphagia : Barium swallow negative Dysphagia Elevated LDL cholesterol level Gait abnormality Hard of hearing History of colitis Hyperlipidemia Hypothyroidism IBS (irritable bowel syndrome) Impaired skin integrity Irritable bowel syndrome with both constipation and diarrhea Mediastinal mass thymoma excised Osteoporosis dexa 2019 / adverse reaction fosamax/boniva. tx refused. Ovarian cyst Postmenopausal Surgical History Surgical History H/O right knee surgery (~1951) History of colonoscopy (~04/19/15) History of neck surgery History of tubal ligation (~1976) Hx of oophorectomy Family History Family History Mother Family history of osteoporosis Depression Family history of cardiovascular disease, Onset Age: 82 Father Patient's father is , Onset Age: 78
[2024-03-19] MEDS: LORazepam INJ (*CRX) 2 MG/ML VIAL 1 MG IV PUSH (23:31)
[2024-03-20 00:05] VITALS: BP 73/45; PULSE 90; RESP 28; O2SAT 91
[2024-03-20 00:57] VITALS: BP 50/32; PULSE 74; RESP 10
[2024-03-20 01:10] VITALS: PULSE 0
== END 2024-03-20 01:10 | disposition expired ==
PROVIDERS: Emergency Provider Physician Assistant; PCP Family Medicine
DX: F41.9 Anxiety disorder, unspecified; M19.90 Unspecified osteoarthritis, unspecified site; F32.A Depression, unspecified; Z66 Do not resuscitate
CPT/HCPCS: 96374; 99284; J2060